=== PATIENT | female | born 1940 | race Caucasian/White ===

== ENCOUNTER → 2020-03-10 | Outpatient (CLI) | payer MEDICARE, BC ==
--- NOTE | 2020-03-10 15:12 | Diagnostic Imaging Report ---
TECHNIQUE: Magnetic resonance imaging of the LEFT SHOULDER was performed WITHOUT injected contrast. COMPARISON: None available. HISTORY: Left shoulder pain FINDINGS: MUSCLES AND TENDONS: Rotator Cuff: Tendons: Full thickness tear of the anterior supraspinatus and superior subscapularis at the humeral insertion. Additional partial-thickness articular sided tearing of the supraspinatus and infraspinatus with mild retraction. Muscles: Generalized atrophy without focal caliber. Biceps Tendon: The long head of the biceps tendon is medially subluxed with intra-articular tendinopathy. GLENOHUMERAL JOINT: Glenohumeral remodeling. Joint effusion with synovitis. Glenoid Labrum: Diffuse degenerative labral tearing. Articular Cartilage: Diffuse full-thickness cartilage loss. AC JOINT AND ACROMION: Mild hypertrophic degenerative changes of the acromioclavicular joint. Small subacromial spur. BONE: Large intraosseous cysts humeral head. No acute fracture. SOFT TISSUES: Fluid in the subacromial subdeltoid bursa. IMPRESSION: Full-thickness tear of the anterior supraspinatus and superior subscapularis. Advanced glenohumeral joint degenerative arthrosis. Long head biceps tendinopathy. Large intraosseous cyst in the humeral head extending from the rotator cuff insertion. Signed by: Dr. Dom Miranda M.D. on 03/10/2020 3:09 PM
--- NOTE | 2020-03-10 16:22 | Diagnostic Imaging Report ---
EXAMINATION: CERVICAL SPINE 4 OR 5 VIEWS, THORACIC SPINE 2VW INDICATION: Neck pain, back pain COMPARISON: None FINDINGS: Cervical spine: AP, lateral, oblique and odontoid images of the cervical spine were obtained. Grade 1 anterolisthesis at C4-5. Reversal of normal cervical lordosis. Severe multilevel degenerative changes with disc space narrowing, osteophyte formation, and facet degeneration. No acute fracture or dislocation. Prevertebral soft tissues are normal in thickness. Thoracic spine: AP and lateral images of the thoracic spine were obtained. No acute fracture. Alignment appears anatomic. Vertebral body heights are maintained. Mild multilevel degenerative changes with small osteophyte formation. Atherosclerotic calcifications of the thoracic aorta. The partially visualized lungs are clear. IMPRESSION: Severe multilevel cervical spine degenerative changes. Mild multilevel degenerative changes of the thoracic spine. Grade 1 anterolisthesis at C4-5 and reversal of the normal cervical lordosis. Signed by: Shae Akins MD on 03/10/2020 4:19 PM
== END ==
LOC: MRI 14:02
PROVIDERS: ATTEND Emergency Medicine
DX: M25.512 Pain in left shoulder (principal); M47.812 Spondylosis without myelopathy or radiculopathy, cervical region; M47.814 Spondylosis without myelopathy or radiculopathy, thoracic region
CPT/HCPCS: 72050; 72070